=== PATIENT | male | born 1960 | race American Indian/Alaskan Native ===

== ENCOUNTER 2020-01-27 17:06 | Emergency (ER) | payer SELFPAY ==
[2020-01-27 17:54] LABS: Basophils # (Auto) 0.1 K/mm3 (0.0-0.1); Basophils % (Auto) 0.6 % (0.0-1.8); Eosinophils # (Auto) 0.1 K/mm3 (0.0-0.4); Eosinophils % (Auto) 0.7 % (0.0-4.3); Hematocrit 47.3 % (35.5-45.6); Hemoglobin 16.1 gm/dl (11.8-15.2); Lymphocytes # (Auto) 3.7 K/mm3 (1.2-5.4); Lymphocytes % (Auto) 27.8 % (13.4-35.0); Mean Corpuscular HGB Conc 34 % (32-34); Mean Corpuscular Volume 89 fl (84-94); Monocytes # (Auto) 0.4 K/mm3 (0.0-0.8); Monocytes % (Auto) 3.3 % (0.0-7.3); Platelet Count 271 K/mm3 (140-440); Red Blood Count 5.32 M/mm3 (3.65-5.03); Red Cell Distribution Width 13.5 % (13.2-15.2)
[2020-01-27 18:17] LABS: BUN/Creatinine Ratio 14; Blood Urea Nitrogen 10 mg/dL (9-20); Calcium 9.1 mg/dL (8.4-10.2); Hemolysis Index 30
[2020-01-27] MEDS: THIAMINE 100 MG, FOLIC ACID 1 MG, MULTIPLE VITAMIN INJ, ADULT 10 ML in SODIUM CHLORIDE ... IV ONE (20:15)
[2020-01-27] MEDS ORDERED: LORazepam 2 MG/ML VIAL IV PRN ×3 (20:20)
--- NOTE | 2020-01-27 20:23 | Emergency Department Report ---
HPI - General Chief Complaint: Alcohol Time Seen by Provider: 01/27/20 19:44 - HPI HPI: 59-year-old male presents to the emergency department with alcohol intoxication. Patient does have a history of alcohol dependence and abuse but previously had gone 90 days sober before he started drinking again 2 days ago. The patient currently lives at a sober living facility and had to come to the emergency department and get clinically sober before he would be allowed back at the sober living center. The patient does say that he had a previous history of alcohol withdrawal seizures and DTs but at this time he has no complaints. Otherwise he denies any past medical history. ED Past Medical Hx - Past Medical History Previous Medical History?: Yes Hx Hypertension: Yes Hx Heart Attack/AMI: Yes (CABG 2014) - Surgical History Past Surgical History?: No - Social History Smoking Status: Current Every Day Smoker Substance Use Type: Alcohol ED Review of Systems ROS: Stated complaint: MEDICAL CLEAR Other details as noted in HPI Comment: All other systems reviewed and negative Constitutional: denies: chills, fever Eyes: denies: eye pain, vision change ENT: denies: ear pain, throat pain Respiratory: denies: cough, shortness of breath Cardiovascular: denies: chest pain, palpitations Gastrointestinal: denies: abdominal pain, vomiting Genitourinary: denies: dysuria, discharge Musculoskeletal: denies: back pain, arthralgia Skin: denies: rash, lesions Neurological: denies: headache, weakness Physical Exam - Physical Exam Vital Signs: Vital Signs 01/27/20 17:09 Temperature 97.4 F L Pulse Rate 79 Respiratory 18 Rate Blood Pressure 98/66 O2 Sat by Pulse 98 Oximetry Physical Exam: GENERAL: The patient is well-developed well-nourished. HENT: Normocephalic. Atraumatic. Patient has moist mucous membranes. EYES: Extraocular motions are intact. NECK: Supple. Trachea is midline. CHEST/LUNGS: Clear to auscultation. There is no respiratory distress noted. HEART/CARDIOVASCULAR: Regular. There is no tachycardia. ABDOMEN: Abdomen is soft, nontender. Patient has normal bowel sounds. There is no abdominal distention. SKIN: Skin is warm and dry. NEURO: The patient is awake, alert, and oriented. The patient is cooperative. The patient has no focal neurologic deficits. Normal speech. MUSCULOSKELETAL: There is no tenderness or deformity. There is no evidence of acute injury. ED Course Vital Signs 01/27/20 17:09 Temperature 97.4 F L Pulse Rate 79 Respiratory 18 Rate Blood Pressure 98/66 O2 Sat by Pulse 98 Oximetry ED Medical Decision Making - Lab Data Result diagrams: 01/27/20 17:35 01/27/20 17:35 - Medical Decision Making The patient came here with alcohol intoxication and abuse and essentially needed medical clearance to return back to the sober living facility. This patient did have a blood alcohol level of 0.32 but was awake, oriented and very pleasant. Despite a history of alcohol withdrawal and DTs, the patient did not have any signs of withdrawal during this ED course. He was given some IV fluid resusci tation including a banana bag but did not require any Ativan. The patient was kept here until about 6 AM and by this time the patient is clinically sober. He was instructed to avoid any further alcohol abuse and intoxication. He will return to the ER with any worsening of his symptoms or any acute distress. Critical Care Time: No Critical care attestation.: If time is entered above; I have spent that time in minutes in the direct care of this critically ill patient, excluding procedure time. ED Disposition Clinical Impression: Alcohol abuse Alcohol intoxication Qualifiers: Complication of substance-induced condition: with unspecified complication Qualified Code(s): F10.929 - Alcohol use, unspecified with intoxication, unspecified Disposition: DC-01 TO HOME OR SELFCARE Is pt being admited?: No Condition: Stable Instructions: Alcohol Intoxication (ED), Abuse of Alcohol (ED) Additional Instructions: Please try and avoid any further alcohol consumption or at least alcohol abuse. Follow-up with a primary care physician as soon as possible. Return to the emergency department with any worsening of your symptoms or any acute distress. Referrals: PCP, Your [Other] - 3-5 Days Time of Disposition: 00:42
[2020-01-27 21:27] VITALS: BP 126/73
[2020-01-27 22:42] LABS: Bacteria,Urine 1+ /HPF (Negative); Bilirubin,Urine NEG (Negative); Blood,Urine NEG (Negative); Color,Urine Yellow (Yellow); Mucus,Urine FEW /HPF; Protein,Urine <15 mg/dL mg/dL (Negative); Urobilinogen,Urine < 2.0 mg/dL (<2.0); WBC,Urine < 1.0 /HPF (0.0-6.0)
[2020-01-27 22:48] LABS: Amphetamine Screen,Urine PRESUMPTIVE NEGATIVE; Benzodiazepines Screen,Urine PRESUMPTIVE NEGATIVE; Cannabinoid Screen,Urine PRESUMPTIVE NEGATIVE; Cocaine Screen,Urine PRESUMPTIVE NEGATIVE; Methadone Screen,Urine PRESUMPTIVE NEGATIVE; Opiate Screen,Urine PRESUMPTIVE NEGATIVE
[2020-01-27] MEDS: NICOTINE 21 MG/24 HR PATCH TD ONE (23:53)
[2020-01-28] MEDS: SODIUM CHLORIDE 0.9% 1000 ML 1,000 ML IV ONE (04:47)
== END 2020-01-28 07:12 | disposition home or self-care (01) ==
LOC: ED 17:06
DX: F10.129 Alcohol abuse with intoxication, unspecified (principal); F10.10 Alcohol abuse, uncomplicated; I10 Essential (primary) hypertension; F17.200 Nicotine dependence, unspecified, uncomplicated; Z79.899 Other long term (current) drug therapy
CPT/HCPCS: 36415; 80048; 80307; 81001; 85025; 96365; 96366; 99283; J3411; J7030; 80320; G0480